=== PATIENT | female | born 1975 | race Caucasian/White ===

== ENCOUNTER 2016-05-16 21:15 | Emergency (ER) | payer OTHER ==
[~2016-05-16] VITALS: Ht 172.7 cm; Wt 94.4 kg
[~2016-05-16 21:15] MED LIST: AMT50 PO; BUPR-267 PO; CLON1TAB3 PO; DSY/150 PO; LEVO175T PO; OXYC-57 PO; PRLSR20 PO; TAMS0.4C38 PO; TOPI50TA24 PO
[2016-05-16 21:23] VITALS: TEMP 36.8; Ht 172.7 cm; Wt 94.4 kg
[2016-05-16] MEDS ORDERED: ONDANSETRON INJ 2 MG/ML 2 ML VIAL IV STA (21:39)
[2016-05-16] MEDS ORDERED: SODIUM CHLORIDE 0.9% 1000ML 1,000 ML IV STA (21:39)
[2016-05-16 22:15] LABS: BASO % 0.4 %; BASO ABS # 0.05 K/uL (0-0.2); COMPLETE YES; EOS % 2.5 %; HEMATOCRIT 44.2 % (37-47); IG% 0.2 %; LYMPH % 28.9 %; LYMPH ABS # 3.48 K/uL (1.2-3.4); MEAN CELL VOLUME 97.1 fL (80-100); MEAN CORPUSCULAR HEMOGLOBIN 34.3 pg (25-34); MEAN CORPUSCULAR HGB CONC 35.3 g/dl (32-36); MEAN PLATELET VOLUME 9.3 fL (7.4-10.4); MONO % 5.8 %; NEUT % 62.2 %; PLATELET COUNT 338 K/uL (130-400); RED BLOOD COUNT 4.55 M/uL (4.2-5.4); WHITE BLOOD COUNT 12.06 K/uL (4.8-10.8)
[2016-05-16 22:22] LABS: URINE APPEARANCE CLOUDY (CLEAR); URINE BILIRUBIN NEG (NEG); URINE COLOR YELLOW; URINE EPITHELIAL CELL AUTO >30 /lpf (0-5); URINE NITRITE POS (NEG); URINE SPECIFIC GRAVITY 1.014 (1.000-1.030); UROBILINOGEN NEG (NEG); ZZURINE CULT IF INDIC CATH YES
[2016-05-16 22:26] LABS: MANUAL MICROSCOPIC REQUIRED? NO; REVIEW REQ? YES
[2016-05-16 22:36] LABS: BUN/CREATININE RATIO 12.3 (10-20); CALCIUM 8.9 mg/dl (8.5-10.1); CREATININE 0.87 mg/dl (0.60-1.20); MAGNESIUM 2.2 mg/dl (1.8-2.4); POTASSIUM 3.7 mmol/L (3.5-5.1)
[2016-05-16 22:49] LABS: URINE PATH CASTS 0-3 GRANULAR CASTS /lpf (0)
--- NOTE | 2016-05-16 22:54 | DIAGNOSTIC IMAGING REPORT ---
KUB HISTORY: Generalized abdominal pain. COMPARISON: KUB 04/04/2016. FINDINGS: The bowel gas pattern is unremarkable. There are no dilated loops of small bowel to suggest an obstruction. Stable round calcifications within the left deep pelvis consistent with phleboliths. Prior cholecystectomy. Punctate bilateral renal calculi are again noted. No definite ureteral calculi. The lung bases are clear. No pneumoperitoneum or pneumatosis. IMPRESSION: Stable bilateral nephrolithiasis. Unremarkable bowel gas pattern. No evidence for bowel obstruction. Electronically signed by: Yogi Andersen M.D. 05/16/2016 10:52 PM Dictated Date/Time: 05/16/2016 10:49 PM
--- NOTE | 2016-05-16 23:03 | DIAGNOSTIC IMAGING REPORT ---
RENAL ULTRASOUND HISTORY: Generalized abdominal pain. Kidney stones. COMPARISON: Renal ultrasound 04/04/2016. FINDINGS: Right kidney: 13.7 cm. No hydronephrosis. Normal corticomedullary differentiation and cortical thickness. There is a 4 mm stone within the interpolar region. Left kidney: 13.2 cm. No hydronephrosis. Normal corticomedullary differentiation and cortical thickness. Probable small stone within the lower pole. Bladder: Decompressed by a Allen catheter and not well visualized. IMPRESSION: Bilateral nephrolithiasis. No hydronephrosis. Electronically signed by: Yogi Andersen M.D. 05/16/2016 11:01 PM Dictated Date/Time: 05/16/2016 10:59 PM
[2016-05-16] MEDS ORDERED: CIPROFLOXACIN 400MG / 200ML D5W IV STA (23:06)
[2016-05-17] MEDS ORDERED: TRAMADOL HCL 50 MG HOME PACK PO ONE
[2016-05-17] MEDS ORDERED: CIPROFLOXACIN 500MG HOME PACK PO ONE
[2016-05-17] MEDS ORDERED: CIPR-255 PO (00:06)
[2016-05-17] MEDS ORDERED: TRAM-10 PO (00:06)
--- NOTE | 2016-05-17 00:09 | EMERGENCY ROOM VISIT NOTE ---
History First contact with patient: 21:33 Chief Complaint: ABDOMINAL PAIN Stated Complaint: VOMITING,PAIN,ABDOMINAL PAIN,CATH PAIN Nursing Triage Summary: c/o n/v and abd pain. states " i just got home from [place] and now this." History of Present Illness The patient is a 40 year old female who presents to the Emergency Department by private vehicle for evaluation of her nausea, vomiting, and lower abdominal pain. She reports that she was seen in a [place] emergency Department 5 days ago after being unable to void. She had a Allen catheter placed which remains in place this point. She has noticed darkening of her urine. She developed nausea and vomiting for the last 3-4 days. There are no known sick contacts otherwise. She denies any diarrhea. She reports no blood in her vomit or stool. She rates her current discomfort as a 9/10. She denies any recent narcotic pain use. They were unable to provide an answer as to why she was unable to void. She denies any back pain. She reports no numbness or tingling into the extremities. She does report a history of kidney stones. She has appointment on the with urology for continued management. The patient reports subjective fevers. She is tried qfxq-als-rbsceeb medications with minimal relief of symptoms. She denies any chest pain, palpitations, short of breath, hematochezia, or melena. She denies any vaginal discharge or drainage. She reports a prior history of cholecystectomy and appendectomy. Review of Systems A complete 10-point Review of Systems was discussed with the patient, with pertinent positives and negatives listed in the History of Present Illness. All remaining Review of Systems questions can be considered negative unless otherwise specified. Past Medical/Surgical History Medical Problems: (1) Anxiety State Nos (2) Back pain with radiation (3) GERD (gastroesophageal reflux disease) (4) Norman's thyroiditis (5) Hypothyroidism Nos (6) Kidney stones (7) Right medial knee pain (8) Right shoulder strain (9) Right sided abdominal pain Family History No pertinent family history Social History Smoking Status: Current Every Day Smoker Smokeless Tobacco Use: No Marital Status: Housing Status: lives with family Occupation Status: employed Current/Historical Medications Scheduled Amitriptyline Hcl (Elavil), 50 MG PO HS Ciprofloxacin Hcl (Cipro), 500 MG PO BID Levothyroxine Sodium (Synthroid), 175 MCG PO DAILY Omeprazole (Prilosec), 20 MG PO DAILY Trazodone HCl (Trazodone HCl), 150 MG PO QPM Scheduled PRN Clonazepam (Klonopin), 1 MG PO HS PRN for Anxiety/Insomnia Tramadol (Ultram), 1-2 TAB PO Q4H PRN for Pain Allergies Coded Allergies: Ketorolac Tromethamine (Unverified Allergy, Severe, VOMIT, 05/16/16) Cephalosporins (Unverified Allergy, Mild, 05/16/16) Penicillins (Unverified Allergy, Mild, 05/16/16) Ceftriaxone (Verified Allergy, Unknown, ANAPHYLAXIS, 05/16/16) Morphine (Verified Allergy, Unknown, HIVES, 05/16/16) Physical Exam Vital Signs Date Time Temp Pulse Resp B/P Pulse Ox O2 Delivery O2 Flow Rate FiO2 05/17/16 00:44 74 18 126/82 98 05/16/16 23:04 72 18 122/88 99 Room Air 05/16/16 21:23 36.8 94 18 120/85 97 Room Air Pain Rating (0-10): 9 Physical Exam VITAL SIGNS - Vital signs and nursing notes were reviewed. GENERAL - 40-year-old female appearing her stated age who is in no acute distress. Communicates well with provider and answers questions appropriately. LUNGS - Chest wall symmetric without accessory muscle use, intercostals retractions, or central cyanosis. Normal vesicular breath sounds CTA B/L. No wheezes, rales, or rhonchi appreciated. CARDIAC - RRR with S1/S2. No murmur, rubs, or gallops appreciated. ABDOMEN - Abdominal contour obese and without pulsations or visible masses. BS normoactive all four quadrants. Mild tenderness to palpation appreciated in the suprapubic abdominal area. No guarding. No Rebound Tenderness. Negative Rovsing' s. Negative Rodriguez's. No palpable masses, hepatosplenomegaly, or ascites noted. PSYCH - A&Ox3 and cooperates fully with examiner. Pt is very pleasant and interacts well with examiner. Medical Decision & Procedures ER Provider Diagnostic Interpretation: Radiological imaging and reports were reviewed by myself. Radiologist's Interpretation as follows: KUB HISTORY: Generalized abdominal pain. COMPARISON: KUB 04/04/2016. FINDINGS: The bowel gas pattern is unremarkable. There are no dilated loops of small bowel to suggest an obstruction. Stable round calcifications within the left deep pelvis consistent with phleboliths. Prior cholecystectomy. Punctate bilateral renal calculi are again noted. No definite ureteral calculi. The lung bases are clear. No pneumoperitoneum or pneumatosis. IMPRESSION: Stable bilateral nephrolithiasis. Unremarkable bowel gas pattern. No evidence for bowel obstruction. RENAL ULTRASOUND HISTORY: Generalized abdominal pain. Kidney stones. COMPARISON: Renal ultrasound 04/04/2016. FINDINGS: Right kidney: 13.7 cm. No hydronephrosis. Normal corticomedullary differentiation and cortical thickness. There is a 4 mm stone within the interpolar region. Left kidney: 13.2 cm. No hydronephrosis. Normal corticomedullary differentiation and cortical thickness. Probable small stone within the lower pole. Bladder: Decompressed by a Allen catheter and not well visualized. IMPRESSION: Bilateral nephrolithiasis. No hydronephrosis. Laboratory Results 05/16/16 22:00 Red Blood Count 4.55, Mean Corpuscular Volume 97.1, Mean Corpuscular Hemoglobin 34.3, Mean Corpuscular Hemoglobin Concent 35.3, Mean Platelet Volume 9.3, Neutrophils (%) (Auto) 62.2, Lymphocytes (%) (Auto) 28.9, Monocytes (%) (Auto) 5.8, Eosinophils (%) (Auto) 2.5, Basophils (%) (Auto) 0.4, Neutrophils # (Auto) 7.50, Lymphocytes # (Auto) 3.48, Monocytes # (Auto) 0.70, Eosinophils # (Auto) 0.30, Basophils # (Auto) 0.05 05/16/16 22:00 Test 05/16/16 22:00 White Blood Count 12.06 K/uL (4.8-10.8) Red Blood Count 4.55 M/uL (4.2-5.4) Hemoglobin 15.6 g/dL (12.0-16.0) Hematocrit 44.2 % (37-47) Mean Corpuscular Volume 97.1 fL (80-100) Mean Corpuscular Hemoglobin 34.3 pg (25-34) Mean Corpuscular Hemoglobin Concent 35.3 g/dl (32-36) Platelet Count 338 K/uL (130-400) Mean Platelet Volume 9.3 fL (7.4-10.4) Neutrophils (%) (Auto) 62.2 % Lymphocytes (%) (Auto) 28.9 % Monocytes (%) (Auto) 5.8 % Eosinophils (%) (Auto) 2.5 % Basophils (%) (Auto) 0.4 % Neutrophils # (Auto) 7.50 K/uL (1.4-6.5) Lymphocytes # (Auto) 3.48 K/uL (1.2-3.4) Monocytes # (Auto) 0.70 K/uL (0.11-0.59) Eosinophils # (Auto) 0.30 K/uL (0-0.5) Basophils # (Auto) 0.05 K/uL (0-0.2) RDW Standard Deviation 43.8 fL (36.4-46.3) RDW Coefficient of Variation 12.5 % (11.5-14.5) Immature Granulocyte % (Auto) 0.2 % Immature Granulocyte # (Auto) 0.03 K/uL (0.00-0.02) Urine Color YELLOW Urine Appearance CLOUDY (CLEAR) Urine pH 7.0 (4.5-7.5) Urine Specific [place] 1.014 (1.000-1.030) Urine Protein TRACE (NEG) Urine Glucose (UA) NEG (NEG) Urine Ketones NEG (NEG) Urine Occult Blood TRACE (NEG) Urine Nitrite POS (NEG) Urine Bilirubin NEG (NEG) Urine Urobilinogen NEG (NEG) Urine Leukocyte Esterase LARGE (NEG) Urine WBC (Auto) >30 /hpf (0-5) Urine RBC (Auto) 5-10 /hpf (0-4) Urine Hyaline Casts (Auto) 1-5 /lpf (0-5) Urine Epithelial Cells (Auto) >30 /lpf (0-5) Urine Bacteria (Auto) 4+ (NEG) Urine Crystals CALCIUM OXALATE (NONE Urine Pathogenic Casts 0-3 GRANULAR CASTS /lpf (0) Urine Test NEG (NEG) Anion Gap 11.0 mmol/L (3-11) Est Creatinine Clear Calc Drug Dose 103.2 ml/min Estimated GFR () 96.6 Estimated GFR (Non- 83.3 BUN/Creatinine Ratio 12.3 (10-20) Calcium Level 8.9 mg/dl (8.5-10.1) Magnesium Level 2.2 mg/dl (1.8-2.4) Total Bilirubin 0.3 mg/dl (0.2-1) Aspartate Amino Transf (AST/SGOT) 10 U/L (15-37) Alanine Aminotransferase (ALT/SGPT) 15 U/L (12-78) Alkaline Phosphatase 56 U/L (45-117) Total Protein 8.3 gm/dl (6.4-8.2) Albumin 4.1 gm/dl (3.4-5.0) Globulin 4.2 gm/dl (2.5-4.0) Albumin/Globulin Ratio 1.0 (0.9-2) Lipase 167 U/L (73-393) Medications Administered Medications (Trade) Dose Ordered Sig/Clemente Route Start Time Stop Time Status Last Admin Dose Admin Sodium Chloride (Nss 1000ml) 1,000 ml @ 999 mls/hr Q1H1M STAT IV 05/16/16 21:39 05/16/16 22:39 DC 05/16/16 21:56 999 MLS/HR Ondansetron HCl (Zofran Inj) 4 mg NOW STAT IV 05/16/16 21:39 05/16/16 21:42 DC 05/16/16 21:57 4 MG Ciprofloxacin/ Dextrose (Cipro / D5w) 400 mg NOW STAT IV 05/16/16 23:06 05/16/16 23:07 DC 05/16/16 23:21 400 MG Tramadol HCl (Ultram Home Pack) 1 homepack UD ONCE PO 05/17/16 00:00 05/17/16 00:01 DC 05/17/16 00:25 1 HOMEPACK Ciprofloxacin (Cipro 500MG Home Pack) 1 homepack UD ONCE PO 05/17/16 00:00 05/17/16 00:01 DC 05/17/16 00:25 1 HOMEPACK ED Course Patient was seen and evaluated by myself. Previous emergency department visit notes were reviewed. Labs were drawn, saline lock in place. The patient was hydrated with a 1000 mL normal saline bolus and received 4 mg Zofran intravenously for nausea. KUB and retroperitoneal ultrasounds were obtained. Laboratory results demonstrate a mild leukocytosis. The patient is not anemic. There are no significant electrolyte abnormalities. Urinalysis consistent with UTI. The patient was treated with IV Cipro. The patient was educated on all lab and imaging studies. She was provided Ultram for breakthrough pain at home. She was encouraged to follow-up with her urologist from today's visit. She was educated on worrisome symptoms for return visit to the emergency department. Patient discharged home afebrile and in good condition. Medical Decision Given the patient's presentation and stated complaints, I did elect to perform the above-mentioned workup. The patient has a significant past medical history of kidney stones. She was seen in this facility 2 times last month for the same complaints of flank pain. She had no stones that had entered the ureters or bladder at that point. She was seen at a facility 5 days ago and has a catheter in place. Given her symptoms of pain, nausea, vomiting, I did elect to perform labs as well as imaging studies. She does have a mild leukocytosis. Her urine is consistent with infection. Because of this, her catheter was discontinued and she was treated with IV Cipro. Her exam is not consistent with acute pyelonephritis at this point and imaging studies do not suggest an infected stone otherwise. Patient was provided Ultram for home. She was provided a prescription for Cipro as well. The patient will follow-up with her scheduled urology appointment. She will return for any changing or worsening symptoms. Patient discharged home afebrile and in good condition. In the evaluation and treatment of this patient, the following differential diagnoses were considered: Kidney Stone, STI, Bladder Cancer, infected ureteral stone, pyelonephritis, hydronephrosis, nephrolithiasis, amongst others. Impression Primary Impression: UTI (urinary tract infection) Additional Impression: Nausea & vomiting Departure Information Dispostion Home / Self-Care Condition GOOD Prescriptions Ciprofloxacin Hcl (CIPRO) 500 Mg Tab 500 MG PO BID for 10 Days, #20 TAB Prov: Aba Reyes PA-C 05/17/16 Tramadol (Ultram) 50 Mg Tab 1-2 TAB PO Q4H Y for Pain, #14 TAB For Initial Treatment Prov: bAa Reyes PA-C 05/17/16 Referrals Rashaun Wahl M.D. (PCP) Patient Instructions [facility], UTI Catheter Associated Additional Instructions You have been treated in the Emergency Department for a Urinary Tract Infection (UTI). You have been prescribed Cipro to be taken as prescribed. This is an antibiotic. All antibiotics have the potential to cause diarrhea. Stop this medication and contact a medical provider if you were to develop any significant adverse side effects including: wheezing, shortness of breath, passing out, vomiting, or a diffuse rash. Always take antibiotics as directed and COMPLETE the ENTIRE course regardless of the improvement of your symptoms. You have been prescribed Ultram to be used for pain control. This is a narcotic medication. You cannot drive or consume alcohol while on this medicine. This medicine should only be used for pain that cannot be controlled with over-the- counter pain medicines. For pain control, you can use the following bhyk-ulr-kxiwzhp medicines (if >12 yo): - Regular strength (325mg/tab) Tylenol (acetaminophen) 2 tabs every 4-6 hours as needed. Do not exceed 12 tablets in a 24 hour period. Avoid taking more than 4 grams (4000 mg) of Tylenol per day. This includes any other sources of acetaminophen you may take on a regular basis. - Regular strength (200 mg/tab) Advil (ibuprofen) 1-2 tabs every 4-6 hours as needed. Do not exceed a dose of 3200 mg per day. Drink plenty of water and stay well hydrated. Keep your follow-up appointment with your urologist as scheduled. Return to the emergency department if your symptoms persist despite treatment plan outlined above or if the following symptoms occur: increased fevers, chills , low back pain, nausea/vomiting, or blood in your urine. Problem Qualifiers Primary Impression: UTI (urinary tract infection) Urinary tract infection type: catheter-associated UTI Indwelling urinary catheter type: indwelling urethral catheter Encounter type: initial encounter Qualified Codes: T83.511A - Infection and inflammatory reaction due to indwelling urethral catheter, initial encounter; N39.0 - Urinary tract infection, site not specified Additional Impression: Nausea & vomiting Vomiting type: unspecified Vomiting Intractability: non-intractable Qualified Codes: R11.2 - Nausea with vomiting, unspecified
[2016-05-17 00:44] VITALS: BP 126/82; PULSE 74; O2SAT 98
--- NOTE | 2016-05-19 13:42 | Pharmacy Progress Note ---
ED Pharmacist Culture FollowUp Date of Service: May 19, 2016. Called patient regarding urine culture. Counseled to stop ciprofloxacin and switch to Bactrim. Prescription for Bactrim DS 1 tab po BID x 10 days called to [facility] at the patient's request. Case discussed with Dr. Gomez, who is the prescribing provider.
== END 2016-05-17 00:46 | disposition home or self-care (01) ==
LOC: C.EDB 21:16 → C.EDA 05-17 00:46
DX: N39.0 Urinary tract infection, site not specified (principal); R11.2 Nausea with vomiting, unspecified; K21.9 Gastro-esophageal reflux disease without esophagitis; E03.9 Hypothyroidism, unspecified; F17.200 Nicotine dependence, unspecified, uncomplicated